=== PATIENT | female | born 1960 | race Two or more races ===

== ENCOUNTER 2021-07-06 10:12 | Outpatient (REF) | payer OTHER, SELFPAY ==
--- NOTE | ~2021-07-06 | CT_ITS ---
EXAMINATION: CT HEAD WITHOUT CONTRAST CLINICAL INFORMATION: Headache COMPARISON: None TECHNIQUE: Contiguous axial imaging was performed from the skull base to vertex without intravenous administration of contrast. This CT examination was performed using dose optimization techniques as appropriate, variously including the following: *Automated exposure control *Adjustment of mA and/or kV according to patient size (this includes techniques or standardized protocols for targeted exams where dose is matched to indication/reason for exam; i.e. extremities or head) *Use of iterative reconstruction technique DLP: 726 mGy-cm FINDINGS: There is no evidence of acute intracranial hemorrhage or territorial infarction. No abnormal mass effect or midline shift is seen. Recinos to white matter differentiation is well preserved. No extra-axial fluid collections are identified. The ventricles are normal in size. There is no abnormal attenuation within the brain parenchyma. The osseous structures are normal. There is bilateral maxillary, ethmoid and left frontal sinusitis. CT/CT head/brain wo con IMPRESSION: Sinusitis otherwise unremarkable exam.
== END 2021-07-06 10:13 | disposition home or self-care (01) ==
LOC: HO.CT 10:12
PROVIDERS: PCP Nurse Practitioner Family; Visit Provider Psychiatry & Neurology Neurology
DX: R51.9 Headache, unspecified (principal)
CPT/HCPCS: 70450

== ENCOUNTER 2022-02-24 09:34 | Outpatient (REF) | payer OTHER, SELFPAY ==
--- NOTE | 2022-02-24 11:01 | MHC.AU.HAS ---
Hearing Aid Evaluation Date of Visit: 02/24/22 Occupational Health Technician Used: Armenian phone kosher inspector #[id number] Historical Information: Description of Hearing: Mild to moderately-severe sensorineural hearing loss in both ears. Summary: The patient is here for a hearing aid evaluation and is accompanied by her . She had her hearing evaluated at [facility] on 02/12/22. Audiogram and medical clearance was available today. The patient reports constant bilateral tinnitus for the past 4 years that is bothersome. She does not have significant concern with her hearing, stating she gets by okay. We discussed use of binaural amplification as treatment for tinnitus and her hearing loss. We discussed the impact of her hearing loss on communication, particularly in adverse listening environments. Binaural amplification is recommended. The patient agreed. We discussed different hearing aid manufacturers and styles. She decided to proceed with a pair of [employer] More 2-rechargeable hearing aids in the color #94 terracotta with 2/85 receivers and 8mm open martin domes. We discussed connectivity to her iPhone. We discussed realistic expectations with hearing aids and tinnitus masking. PA submitted to insurance. Patient instructed that our office will contact her to schedule the hearing aid fitting once the PA is approved. Hearing aid order pending PA approval. No other questions or concerns reported. Plan of Care: Patient wishes to purchase hearing aids as prescribed Action Taken/Action Needed: Prior authorization to be requested Hearing Instrument Fitting to be scheduled when materials arrive Comments: Primary Diagnosis: H90.3 Bilateral Sensorineural Hearing Loss Secondary Diagnosis: Signature: Provider: Singh Steele, [facility]
== END 2022-02-24 09:35 | disposition home or self-care (01) ==
LOC: HO.HAP 09:34
PROVIDERS: Visit Provider Otolaryngology
DX: Z46.1 Encounter for fitting and adjustment of hearing aid (principal); H90.3 Sensorineural hearing loss, bilateral
CPT/HCPCS: 92591

== ENCOUNTER 2022-04-13 13:19 | Outpatient (REF) | payer OTHER, SELFPAY ==
--- NOTE | 2022-04-13 14:58 | MHC.AU.HFA ---
Hearing Instrument Fitting- Adult- Binaural Date of Visit: 04/13/22 Hearing Instruments Dispensed: Right Ear: Oticon MORE 2 miniRITE-R, Serial # [id number], [employer] Warranty: 04/30/2025 Loss and Damage Warranty: 04/30/2025 Battery Size: Rechargeable Playground Official: Type of Dome: 8mm Openbass domes Type of Wax Guard: Prowax minifit Left Ear: Oticon MORE 2 miniRITE-R, Serial #[id number], [employer] Warranty: 04/30/2025 Loss and Damage Warranty: 04/30/2025 Battery Size: Rechargeable Playground Official: Type of Dome: 8m Openbass domes Type of Wax Guard: Prowax minifit Accessories/Assistive Technology: [employer] [place] Air Launch Weapons Technician, Serial # [id number] Summary of Fitting: The patient is here for a hearing aid fitting, accompanied by her . PA approved. Hearing aids were programmed to adaptation level 3, volume control disabled. Feedback esthetician and manager medical spa was run. Speech mapping reveals the hearing aids are functioning and meeting targets. The patient reported a comfortable fit and volume bilaterally. She was able to manipulate, insert and remove the hearing aids with ease. We reviewed hearing aid cleaning and general care, including the social work manager. Discussed importance of consistent use. I paired the hearing aids to the patient's iPhone and reviewed connectivity. We were able to troubleshoot a streaming balance issue due to default iPhone settings. No other concerns at this time. The patient will return in 2-3 weeks for a follow-up before she goes on vacation. We can assess need to tinnitus masker at follow-up. Diagnosis Code(s): Primary Diagnosis: H90.3 Bilateral Sensorineural Hearing Loss Signature: Provider: Singh Steele, CCC-A
== END 2022-04-13 13:20 | disposition home or self-care (01) ==
LOC: HO.HAP 13:19
PROVIDERS: Visit Provider Nurse Practitioner Family
DX: Z46.1 Encounter for fitting and adjustment of hearing aid (principal); H90.3 Sensorineural hearing loss, bilateral
CPT/HCPCS: V5160; V5261

== ENCOUNTER 2022-04-27 13:27 | Outpatient (REF) | payer OTHER, SELFPAY ==
--- NOTE | 2022-04-27 14:00 | MHC.AU.HFU ---
Hearing Instrument Follow-Up- Binaural Date of Visit: 04/27/22 Right Ear: Oticon MORE 2 miniRITE-R, Serial # [id number], [employer] Warranty: 04/30/2025 Loss and Damage Warranty: 04/30/2025 Battery Size: Rechargeable Recreation Assistant: [id number] Type of Dome: 8mm Openbass domes Type of Wax Guard: Prowax minifit Dispensed By: [facility] Date of Fittin04/13/2022 Left Ear: Oticon MORE 2 miniRITE-R, Serial #[id number], [employer] Warranty: 04/30/2025 Loss and Damage Warranty: 04/30/2025 Battery Size: Rechargeable Recreation Assistant: 2 Type of Dome: 8mm Openbass domes Type of Wax Guard: Prowax minifit Dispensed By: [facility] Date of Fittin04/13/2022 Follow-Up Summary: The patient is here accompanied by her for a hearing aid check following the fitting. Dariusz reports that she is not wearing her hearing aids as often because she finds them to be too loud, noticing soft sounds like her hair moving. I decreased overall gain from adaptation level 3 to adaptation level 2. I also decreased sound soft perception one click toward comfort. The patient reported a more tolerable volume percept. Data logging reveals less than 1 hour of use per day. I encouraged her to wear her hearing aids 8-10 hours per day. No concern with retention. No issues with sound quality streaming from her iPhone. Reviewed hearing aid care. Patient is going away for vacation and will schedule follow-up as needed. Recommended audiogram in 1 year, sooner if concerns arise. Patient indicated understanding. Diagnosis Code(s): Primary Diagnosis: H90.3 Bilateral Sensorineural Hearing Loss Signature: Provider: Singh Steele, [facility]
== END 2022-04-27 13:28 | disposition home or self-care (01) ==
LOC: HO.HAP 13:27
PROVIDERS: Visit Provider Nurse Practitioner Family
DX: Z13.89 Encounter for screening for other disorder (principal)